=== PATIENT | male | born 1940 | race Caucasian/White ===

== ENCOUNTER 2017-06-17 14:09 | Inpatient (IN) | payer MEDICARE ==
[~2017-06-17] VITALS: Ht 170.2 cm; Wt 90.0 kg
--- NOTE | ~2017-06-17 | EC ---
PATIENT:MADELYN PRAJAPATI DATE OF SERVICE: 06/17/17 SEX: M MEDICAL RECORD: [id number] DATE OF : 42 LOCATION:D. D.212 AGE OF PATIENT: 77 ADMISSION DATE: 06/17/17 REFERRING PHYSICIAN: INTERPRETING PHYSICIAN: MELLY WHIPPLE MD ECHOCARDIOGRAM REPORT ECHO CHARGES 4 ECHO COMPLETE CLINICAL DIAGNOSIS: HYPOTENSION ECHOCARDIOGRAPHIC MEASUREMENTS (adult normal given) AC root (d.<3.7cm) 3.1 cm LV Septum d (<1.2 cm> 1.1 cm Valve Excursion 1.6 cm LV Septum (systole) 1.5 cm Left Atria (s.<4.0cm> 3.5 cm LVPW d(<1.2cm) 1.6 cm RV (d.<2.3cm) 4.0 cm LVPW (sytole) 1.7 cm LV diastole(<5.6CM) 3.9 cm MV E-F(>70mm/sec) cm LV systole 2.3 cm LVOT Diameter 2.0 cm MV exc.(>10mm) 1.5 cm Est.ejection fraction (50-75%) % Pericardial Effusion N DOPPLER: LVIT cm/sec A 84.0 cm/sec E 97.0 cm/sec LA cm/sec RVSP mmHg LVOT 145 cm/sec AOP1/2T 44 m/s Asc. Ao 156 cm/sec RVOT 178 cm/sec RA cm/sec PA 209 cm/sec AV Gradient Peak 9.73 mmHg AV Mean 5.05 mmHg AV Area 2.5 cm MV Gradient Peak 4.52 mmHg MV Mean 2.35 mmHg MV Area cm COMMENTS: Communicable Disease Specialist: Claire HILLIARD Potato Seed Cutter: 2 Dr. Chowdary TAPE# PACS DATE OF SERVICE: 06/18/2017 FINDINGS: 1. Left ventricle chamber size is within normal limits. Left ventricular systolic function is normal. Overall ejection fraction estimated at 65%. 2. Left atrium, right atrium, and right ventricular chamber sizes are within normal limits. 3. Valvular structures have normal structure and motion. 4. Doppler interrogation reveals mild mitral regurgitation, mild tricuspid regurgitation, no other valvular insufficiency or stenosis. Pulmonary systolic ECHOCARDIOGRAM REPORT [id number] MADELYN PRAJAPATI pressure is estimated at 44 mmHg. 5. No evidence of pericardial effusion or left ventricular thrombus. TRANSINT:[id number] Voice Confirmation ID: [id number] DOCUMENT ID: [id number] MELLY WHIPPLE MD CC: [id number] DICTATION DATE: 06/18/17 1245 INFORMATICS DEVELOPER: 06/18/17 1425 ADM IN [place] [id number] [place] [address]
--- NOTE | ~2017-06-17 | DS ---
PATIENT:MADELYN PRAJAPATI :42 MEDICAL RECORD: [id number] DISCHARGE SUMMARY ADMISSION DATE: 06/17/17 DISCHARGE DATE: 06/22/17 DATE OF ADMISSION: 06/17/2017 DATE OF DISCHARGE: 06/22/2017 ADMITTING DIAGNOSES: Near syncope, absolute anemia, history of head and neck cancer, hypertension, chronic pain, pneumonia, renal insufficiency, and type 2 diabetes mellitus. HOSPITAL COURSE: This is a gentleman admitted with diagnoses as outlined above. Details are well-outlined in the history of present illness, H&P. All events, lab procedures, diagnostic testing are well documented in the records. The patient was admitted, appropriate home medicines continued. CONSULTANTS: Dr. Wang, hematology/oncology. Her recommendations were followed. Counts and volume closely followed. He had serial chest x-rays while here. Started on Zofran and Rocephin for the treatment of pneumonia. He did drop hematology counts. Hemoglobin dropped to 7.6. He did get transfused. Platelets dropped to 79. His counts have now improved. He had no further syncopal episodes. White count 10, hemoglobin 9.4, platelets are 157. Other workup sent out per Dr. Wang pending. PHYSICAL EXAMINATION: VITAL SIGNS: He is afebrile, pulse 95, respirations 17, blood pressure 124/66, O2 sat 96% room air. GENERAL: He is ambulating without any problems. LABORATORY DATA AND IMAGING STUDIES: Glucose 129, proBNP found to be 4190. Echocardiogram reviewed, EF is 65%, mild mitral regurgitation, mild tricuspid regurgitation. No other valvular insufficiency, RVSP is 44. No thrombus, no effusion. X-rays are closely followed. Today x-ray shows partial interval improvement in airspace disease in both lung bases, small left pleural effusion and interval development of trace right pleural effusion. He is stable for dismissal home to follow up with Dr. Ma in [place]. We will put him on 5 more days of Omnicef, started him on a low dose Lasix 20 daily for the elevated proBNP. Please refer to med rec. A 37 minutes spent on this discharge. His stool guaiac was negative. He had no further syncope, near syncope while in the hospital. TRANSINT:[id number] Voice Confirmation ID: [id number] DOCUMENT ID: [id number] Dictated By: MALISSA PARRA RN I have interviewed/examined the above patient and agree with these documented findings. DISCHARGE SUMMARY REPORT [id number] MADELYN PRAJAPATI MATTHEW DO CC: THERESA WANG MD and ROSS MA MD [id number] DICTATION DATE: 06/22/17 1439 4TH GRADE MATH TEACHER: 06/22/17 7043 DIS IN 06/22/17 [facility] [address] [place] [address]
[2017-06-17 15:16] LABS: BASOPHILS 0 % (0-2); EOSINOPHILS 0 % (0-7); HEMATOCRIT 32.6 % (42.0-54.0); HEMOGLOBIN 10.4 g/dL (13.5-17.5); IMMATURE GRANULOCYTES 0.2 % (0-5); LYMPHOCYTES 8.4 % (15-50); MCH 30.3 pg (26.0-34.0); MCHC 31.9 g/dL (31.0-37.0); MEAN PLATELET VOLUME 10.8 fL (7.4-10.4); MONOCYTES 6.6 % (2-11); NEUTROPHILS 84.8 % (40-80); PLATELET COUNT 213 10x3/uL (130-400); RBC 3.43 10x6/uL (4.20-6.10); RDW 13.3 % (11.5-14.5); WBC 12.7 10x3/uL (4.8-10.8)
[2017-06-17 15:35] LABS: ANION GAP 16.8 mmol/L (8-16); CARBON DIOXIDE 26.2 mmol/L (21.0-32.0); CREATININE - SERUM 1.4 mg/dL (0.6-1.3)
[2017-06-17 15:52] LABS: CALCIUM 9.4 mg/dL (8.5-10.1)
[2017-06-17 16:17] LABS: CKMB 0.8 U/L (0.0-3.6); CREATINE KINASE 71 UL (21-232)
[2017-06-17 16:22] LABS: TROPONIN-I < 0.017 ng/mL (0.000-0.060)
[2017-06-17 18:26] LABS: APPEARANCE CLEAR (CLEAR); BILIRUBIN NEGATIVE (NEGATIVE); COLOR YELLOW (YELLOW); GLUCOSE NEGATIVE (NEGATIVE); KETONE NEGATIVE (NEGATIVE); LEUKOCYTE ESTERASE NEGATIVE (NEGATIVE); NITRITE NEGATIVE (NEGATIVE); PROTEIN NEGATIVE (NEGATIVE); SPECIFIC GRAVITY 1.015 (1.005-1.020); UROBILINOGEN NORMAL (NORMAL)
[2017-06-17 19:00] VITALS: BP 127/61
--- NOTE | 2017-06-17 21:04 | NUR ---
REPORT FROM ELLA FERNANDEZ.
[2017-06-18] VITALS: BP 104/48
[2017-06-18 00:48] VITALS: BMI 29.8
[2017-06-18] MEDS ORDERED: PERCOCET 10/3251 TA1 PO (01:11)
[2017-06-18] MEDS ORDERED: XANAX1 MG PO (01:11)
[2017-06-18] MEDS ORDERED: COSOPT EYE DROPS5 ML EACH EYE (01:12)
[2017-06-18] MEDS ORDERED: ZESTRIL20 MG PO (01:12)
[2017-06-18] MEDS ORDERED: GLUCOPHAGE500 MG PO (01:14)
--- NOTE | 2017-06-18 02:30 | NUR ---
LYING IN BED, CALL LIGHT IN REACH. WILL CONTINUE WITH PLAN OF CARE
[2017-06-18 04:00] VITALS: BP 168/72
[2017-06-18 06:08] LABS: BASOPHILS 0 % (0-2); EOSINOPHILS 0 % (0-7); LYMPHOCYTES 14.7 % (15-50); MCH 29.8 pg (26.0-34.0); MCHC 31.5 g/dL (31.0-37.0); MCV 94.5 fL (80.0-100.0); MEAN PLATELET VOLUME 10.2 fL (7.4-10.4); MONOCYTES 10.8 % (2-11); NEUTROPHILS 74.5 % (40-80); RDW 13.7 % (11.5-14.5)
[2017-06-18 06:09] LABS: WBC 8.5 10x3/uL (4.8-10.8)
[2017-06-18 06:10] LABS: HEMATOCRIT 24.1 % (42.0-54.0); HEMOGLOBIN 7.6 g/dL (13.5-17.5); PLATELET COUNT 159 10x3/uL (130-400); RBC 2.55 10x6/uL (4.20-6.10)
--- NOTE | 2017-06-18 06:12 | NUR ---
UNABLE TO VOID AT THIS TIME, IS UNSURE WHETHER HE NEEDS TO GO OR NOT. BLADDER SCAN SHOWS 293. WILL CONTINUE TO MONITOR.
[2017-06-18 06:14] LABS: CALC OSMOLALITY 282 mosm/kg (275-300); CALCIUM 8.2 mg/dL (8.5-10.1); CARBON DIOXIDE 26.6 mmol/L (21.0-32.0); CHLORIDE - SERUM 106 mmol/L (98-107); CKMB 1.8 U/L (0.0-3.6); CREATINE KINASE 182 UL (21-232); GLUCOSE 135 mg/dL (74-106); MAGNESIUM - SERUM 1.7 mg/dL (1.8-2.4); POTASSIUM - SERUM 4.4 mmol/L (3.5-5.1); SODIUM 139 mmol/L (136-145); TROPONIN-I < 0.017 ng/mL (0.000-0.060); UREA NITROGEN 20 mg/dL (7-18); eGFR NON AFRICAN AMERICAN 77 mL/min (90-120)
--- NOTE | 2017-06-18 07:15 | NUR ---
RECEIVED REPORT. ASSUMED CARE OF PATIENT. CALL LIGHT WITHIN REACH. DENIES NEEDS. IV FLUIDS INFUSING ORDERED TO LEFT AC. NO DISTRESS.
[2017-06-18 08:25] VITALS: BP 127/58
--- NOTE | 2017-06-18 09:00 | HP ---
PATIENT: MADELYN PRAJAPATI MEDICAL RECORD: [id number] ACCOUNT: [id number] LOCATION:[address] : 41 ADMISSION DATE: 06/17/17 HISTORY AND PHYSICAL EXAMINATION HISTORY: Mr. Prajapati is a 77-year-old male that presents to the Emergency Room with a near syncopal episode. He felt fine yesterday. This morning, was up, doing his normal routine, and began feeling very dizzy and fatigued. He felt like he was going to pass out, broke out in a sweat, was clammy and nauseated, never threw up. He came to the Emergency Room, where he was found to be hypotensive ____. He was given fluid resuscitation. His blood pressure is still running low. On exam, he has a loud holosystolic murmur. He has also got pneumonia, it looks like in his left chest. He does have mild elevation of his white count. He is going to be admitted and further evaluated. PAST MEDICAL HISTORY: Significant for known hypertension, history of neck cancer with resection and radiation therapy in 2010. He has diabetes. He is a previous smoker. He has history of anxiety. PAST SURGICAL HISTORY: Previous surgeries again include left neck resection. ALLERGIES: None known. HOME MEDICATIONS: Include oxycodone 10/325 t.i.d. p.r.n., alprazolam 1 mg p.r.n., metformin 500 b.i.d., lisinopril 20 daily, and Centrum Vitamin. FAMILY HISTORY: Noncontributory. SOCIAL HISTORY: The patient is an ex-smoker and ex-drinker. REVIEW OF SYSTEMS: He denies any fever. He has had a little bit of cough. No chest pain. He has some chronic shortness of breath. No recent changes in bladder or bowel habits. PHYSICAL EXAMINATION: HEENT: Head is normocephalic. Sclerae nonicteric. HEART: Regular with loud holosystolic murmur. LUNGS: Clear. ABDOMEN: Soft. EXTREMITIES: Lower extremities reveal no pitting. IMPRESSION: 1. Near syncope. 2. Pneumonia. 3. Hypertension. 4. Renal insufficiency. 5. Type 2 diabetes. 6. Chronic pain. 7. Heart murmur. PLAN: Blood cultures and start IV antibiotics. Hold lisinopril. Hold metformin due to renal insufficiency. Sliding scale. Check an echo. Repeat enzymes in a.m. See orders for rest of plan. TRANSINT:[id number] Voice Confirmation ID: [id number] DOCUMENT ID: [id number] HISTORY AND PHYSICAL [id number] MADELYN PRAJAPATI MATTHEW DO at 0900 CC: [id number] DICTATION DATE: 06/17/172000 PROPERTY ACCOUNTANT: 06/17/172026 ADM IN [place] [id number] [place] [id number]
[2017-06-18 09:43] VITALS: Ht 170.2 cm; Wt 90.0 kg
--- NOTE | 2017-06-18 11:32 | NUR ---
FSBS 140. NO INSULIN PER SLIDING SCALE.
[2017-06-18 12:12] VITALS: BP 145/65
--- NOTE | 2017-06-18 12:18 | NUR ---
RECEIVING 1ST UNIT OF PRBC'S. FEMALE AT BEDSIDE WITH PATIENT. CALL LIGHT WITHIN REACH. NO DISTRESS NOTED.
--- NOTE | 2017-06-18 12:41 | NUR ---
TOLERATING BLOOD TRANSFUSION WELL. DENIES NEEDS. NO S/S OF TRANSFUSION REACTION. AT BEDSIDE.
--- NOTE | 2017-06-18 15:59 | NUR ---
2ND UNIT PRBC'S INFUSING AT THIS TIME. NO DISTRESS. TOLERATING INFUSION WELL. AT BEDSIDE. CALL LIGHT WITHIN REACH.
[2017-06-18 16:24] VITALS: BP 124/61
[2017-06-18 19:00] VITALS: BP 139/63
--- NOTE | 2017-06-18 19:30 | NUR ---
ALERT/AWAKE DENIES PAIN OR ANY NEEDS. FAMILY PRESENT IN ROOM. IV IN L AC WITH NS INFUSING AT 75ML/HR. TELEMETRY SHOWS 78 SR ON MONITOR. ORIENTED TO CL FOR ANY NEEDS.
--- NOTE | 2017-06-18 21:25 | NUR ---
CHECKED BS AT 125, NO INSULIN REQUIRED PER SLIDING SCALE. DENIES ANY NEEDS. PRESENT IN ROOM.
[2017-06-19] VITALS (7 sets, daily range): BP systolic 118–141; BP diastolic 54–70
--- NOTE | 2017-06-19 00:30 | NUR ---
ADMIN PERCOCET PO PER REQUEST FOR C/O "MOUTH PAIN". STATED PAIN FROM CHEMO TREATMENTS. NO OTHER NEEDS VOICED.
--- NOTE | 2017-06-19 05:45 | NUR ---
CHECKED BS AT120, NO INSULIN REQUIRED PER S/S. DENIES ANY NEEDS.
[2017-06-19 05:49] LABS: BASOPHILS 0 % (0-2); EOSINOPHILS 0.2 % (0-7); HEMATOCRIT 27.8 % (42.0-54.0); IMMATURE GRANULOCYTES 0.4 % (0-5); LYMPHOCYTES 10.8 % (15-50); MCH 30.3 pg (26.0-34.0); MCHC 33.1 g/dL (31.0-37.0); MEAN PLATELET VOLUME 10.1 fL (7.4-10.4); MONOCYTES 11.8 % (2-11); NEUTROPHILS 76.8 % (40-80); RBC 3.04 10x6/uL (4.20-6.10); RDW 14.4 % (11.5-14.5)
[2017-06-19 06:12] LABS: CALCIUM 8.2 mg/dL (8.5-10.1); CHLORIDE - SERUM 105 mmol/L (98-107); GLUCOSE 120 mg/dL (74-106); SODIUM 139 mmol/L (136-145)
[2017-06-19 06:14] LABS: CALC OSMOLALITY 277 mosm/kg (275-300); CREATININE - SERUM 0.7 mg/dL (0.6-1.3); POTASSIUM - SERUM 3.6 mmol/L (3.5-5.1); UREA NITROGEN 11 mg/dL (7-18); eGFR NON AFRICAN AMERICAN > 90 mL/min (90-120)
[2017-06-19 06:21] LABS: HEMOGLOBIN 9.2 g/dL (13.5-17.5); MCV 91.4 fL (80.0-100.0); PLATELET COUNT 79 10x3/uL (130-400); WBC 5.6 10x3/uL (4.8-10.8)
[2017-06-19 06:52] LABS: PLATELET ESTIMATE DECREASED
--- NOTE | 2017-06-19 07:40 | NUR ---
ASSESSMENT DONE. DENIES NEEDS.
--- NOTE | 2017-06-19 10:20 | NUR ---
UP TO BR. IV PATENT. WILL MONITOR NEEDS.
[2017-06-19 13:47] LABS: % SATURATION 19 % (15-55); IRON 46 ug/dl (35-150); TOTAL IRON BIND CAPACITY 232 ug/dl (260-445); UNSAT IRON BIND CAPACITY 186 ug/dl (150-375)
--- NOTE | 2017-06-19 18:06 | NUR ---
WITHOUT CHANGES OR DISTRESS NOTED AT THIS TIME. DENIES NEEDS.
--- NOTE | 2017-06-19 19:50 | NUR ---
ALERT/AWAKE ORIENTED X 4. IV IN L FA WITH NS INFUSING AT 75ML/HR. TELEMETRY SHOWS 96 SR. DENIES ANY NEEDS. HIS IS PRESENT IN ROOM. NO QUESTIONS OR CONCERNS VOICED.
--- NOTE | 2017-06-19 22:50 | NUR ---
RETURNING TO BED FROM BATHROOM. DENIES ANY NEEDS.
[2017-06-20 02:33] VITALS: BP 120/60
--- NOTE | 2017-06-20 05:51 | NUR ---
PATIENT'S STATED HE HAD GOTTEN THE TOILET AND BATHROOM FLOOR DIRTY AND IT NEEDS CLEANED UP. INFORMED EVS.
[2017-06-20 07:07] VITALS: BP 136/51
--- NOTE | 2017-06-20 07:20 | NUR ---
PT UP TO BATHROOM AT THIS TIME, PT DENIES NEEDS. INSTRUCTED TO PULL CORD WHEN FINISHED. WILL CONT TO MONITOR
[2017-06-20 08:00] VITALS: BP 115/76
[2017-06-20 12:00] VITALS: BP 122/54
[2017-06-20 16:00] VITALS: BP 135/63
[2017-06-20 16:13] LABS: BASOPHILS 0 % (0-2); EOSINOPHILS 1.1 % (0-7); HEMATOCRIT 26.9 % (42.0-54.0); HEMOGLOBIN 8.9 g/dL (13.5-17.5); IMMATURE GRANULOCYTES 0.4 % (0-5); LYMPHOCYTES 10.5 % (15-50); MCH 31.2 pg (26.0-34.0); MCHC 33.1 g/dL (31.0-37.0); MEAN PLATELET VOLUME 10.2 fL (7.4-10.4); MONOCYTES 11.6 % (2-11); NEUTROPHILS 76.4 % (40-80); PLATELET COUNT 90 10x3/uL (130-400); RBC 2.85 10x6/uL (4.20-6.10); RDW 14.4 % (11.5-14.5); WBC 5.4 10x3/uL (4.8-10.8)
[2017-06-20 16:14] LABS: MCV 94.4 fL (80.0-100.0)
[2017-06-20 16:22] LABS: CALC OSMOLALITY 284 mosm/kg (275-300); CALCIUM 7.9 mg/dL (8.5-10.1); CARBON DIOXIDE 31.7 mmol/L (21.0-32.0); CHLORIDE - SERUM 107 mmol/L (98-107); CREATININE - SERUM 0.7 mg/dL (0.6-1.3); GLUCOSE 118 mg/dL (74-106); POTASSIUM - SERUM 3.4 mmol/L (3.5-5.1); SODIUM 143 mmol/L (136-145); UREA NITROGEN 10 mg/dL (7-18); eGFR NON AFRICAN AMERICAN > 90 mL/min (90-120)
--- NOTE | 2017-06-20 16:23 | NUR ---
PT KEEPS ASKING IF HE CAN GO HOME. SAYS NURSE PRACTIONER WITH DR MARTI TOLD HIM HE COULD GO AND HE WANTS TO GO SO HIM AND HIS CAN GO PICK THEIR DOGS UP IN [place]. HAVE TRIED EXPLAINING TO PT THAT IT WOULD STILL BE AWHILE, WE STILL DO NOT HAVE ORDERS YET AND DR MARTI HAS NOT MADE IT UP TO DO HIS ROUNDS. WILL UPDATE PT ACCORDINGLY
--- NOTE | 2017-06-20 18:12 | NUR ---
PT IS NOT BEING DC HOME. DR WANG FOLLOWING PT
--- NOTE | 2017-06-20 19:51 | NUR ---
ALERT/ORIENTED X 4. DENIES ANY NEEDS. IV IN L FA WITH NS INFUSING AT 150ML/HR. TELEMETRY SHOWS 86 SR. HIS IS PRESENT IN ROOM. NO QUESTIONS OR CONCERNS VOICED.
[2017-06-20 20:00] VITALS: BP 140/66
--- NOTE | 2017-06-20 21:20 | NUR ---
CHECKED BS AT 117, NO INSULIN REQUIRED PER SLIDING SCALE. AWAKE/ALERT DENIES ANY NEEDS OR DISCOMFORT. REORIENTED HIM TO TIME OF DAY. HIS IS PRESENT IN ROOM.
[2017-06-21 04:00] VITALS: BP 112/55
--- NOTE | 2017-06-21 05:30 | NUR ---
CHECKED BS AT 102, NO INSULIN REQUIRED PER SLIDING SCALE. DENIES ANY NEEDS.
[2017-06-21 09:17] LABS: FOLATE (FOLIC ACID) - SERUM 17.6 ng/mL (>3.0)
--- NOTE | 2017-06-21 09:26 | NUR ---
ASSESSMENT DONE. DENIES NEEDS.
--- NOTE | 2017-06-21 10:02 | NUR ---
RESP UL ON . IV PATENT. CALL LIGHT IN REACH. WILL CONT. PLAN OF CARE.
[2017-06-21 11:28] LABS: BASOPHILS 0.2 % (0-2); EOSINOPHILS 1.3 % (0-7); HEMATOCRIT 26.5 % (42.0-54.0); HEMOGLOBIN 8.6 g/dL (13.5-17.5); IMMATURE GRANULOCYTES 0.4 % (0-5); LYMPHOCYTES 7.8 % (15-50); MCH 30.7 pg (26.0-34.0); MCHC 32.5 g/dL (31.0-37.0); MCV 94.6 fL (80.0-100.0); MEAN PLATELET VOLUME 10.1 fL (7.4-10.4); MONOCYTES 10.3 % (2-11); PLATELET COUNT 104 10x3/uL (130-400); RDW 14.4 % (11.5-14.5); WBC 5.5 10x3/uL (4.8-10.8)
[2017-06-21 11:31] LABS: CALC OSMOLALITY 287 mosm/kg (275-300); CARBON DIOXIDE 30.3 mmol/L (21.0-32.0); CHLORIDE - SERUM 108 mmol/L (98-107); CREATININE - SERUM 0.7 mg/dL (0.6-1.3); GLUCOSE 131 mg/dL (74-106); POTASSIUM - SERUM 3.4 mmol/L (3.5-5.1); SODIUM 144 mmol/L (136-145); UREA NITROGEN 9 mg/dL (7-18); eGFR NON AFRICAN AMERICAN > 90 mL/min (90-120)
[2017-06-21 11:33] LABS: APTT 32.7 SECONDS (22.8-39.4); INR 1.11 (0.85-1.17); PROTIME 14.2 SECONDS (11.6-15.0)
[2017-06-21 12:00] VITALS: BP 135/67
--- NOTE | 2017-06-21 13:54 | NUR ---
Nutrition Follow Up: Pt stated that his appetite is good. He said that he does not really like Glucerna. Pt is eating 56% meal avg [facility] diet. He is receiving Glucerna TID. Wt gain since admit noted. +BM 06/20/17. Meds and labs reviewed. Rec continue current diet. Will d/c Glucerna. RD following.
[2017-06-21 17:54] VITALS: BP 137/65
[2017-06-21 20:00] VITALS: BP 173/96
[2017-06-21 22:46] LABS: BASOPHILS 0.1 % (0-2); EOSINOPHILS 2.2 % (0-7); HEMATOCRIT 28.8 % (42.0-54.0); HEMOGLOBIN 9.4 g/dL (13.5-17.5); IMMATURE GRANULOCYTES 0.5 % (0-5); LYMPHOCYTES 15.2 % (15-50); MCHC 32.6 g/dL (31.0-37.0); MEAN PLATELET VOLUME 9.9 fL (7.4-10.4); MONOCYTES 10.3 % (2-11); NEUTROPHILS 71.7 % (40-80); PLATELET COUNT 157 10x3/uL (130-400); RBC 3.03 10x6/uL (4.20-6.10); RDW 14.6 % (11.5-14.5); WBC 10.4 10x3/uL (4.8-10.8)
[2017-06-21 22:57] VITALS: BP 161/69
[2017-06-21 23:00] LABS: ALBUMIN 2.9 g/dL (3.4-5.0); ALKALINE PHOSPHATASE 77 U/L (46-116); ALT (SGPT) 21 U/L (10-68); BILIRUBIN - TOTAL 1.12 mg/dL (0.2-1.3); CALC OSMOLALITY 285 mosm/kg (275-300); CALCIUM 7.8 mg/dL (8.5-10.1); CARBON DIOXIDE 27.3 mmol/L (21.0-32.0); CHLORIDE - SERUM 107 mmol/L (98-107); CREATININE - SERUM 0.7 mg/dL (0.6-1.3); GLUCOSE 152 mg/dL (74-106); POTASSIUM - SERUM 3.6 mmol/L (3.5-5.1); PROTEIN - SERUM 6.6 g/dL (6.4-8.2); SODIUM 142 mmol/L (136-145); eGFR NON AFRICAN AMERICAN > 90 mL/min (90-120)
[2017-06-21 23:04] LABS: UREA NITROGEN 12 mg/dL (7-18)
--- NOTE | 2017-06-21 23:47 | NUR ---
INITIAL ROUNDS COMPLETEDA T 1920 HRS. PT DENIED ANY DISCOMFORT. OUT AT DESK STATING PT IS SHAKING. FSBS DONE WITH RATE OF 111. ASSESSMENT COMPLETED AT [address] PER CM HR 114. O2 2LNC. LUNGS DIMINISHED IN BASES BILAT. PT VERY INAJA. IV TO LFA WITH NS AT 150CC/HR. PECOCET GIVEN AT HS FOR C/O BACK PAIN. PT ALSO HAS LOW GRADE TEMP. OUT TO NURSE'S STATION REQUESTING HELP TO PULL PT UP IN BED AT 2020 HRS. AUDIBLE WHEEZES HEARD. PT TACHYCARDIC WITH ST HR 131. O2 SAT 81% ON 2LNC. O2 INCREASE TO 3L AND RAPID RESPONSE CALLED AT 2225 HRS. O2 UP TO 5LNC. ABG'S AND LAB DRAWN. UPDRAFT GIVEN. LASIX 20MG SIVP GIVEN. VS IMPROVED BY 2300 AND PT STATED FEELS BETTER. CONTINUOUS PULSE OX IN ROOM WITH O2 SAT RUNNING 94-95% ON 5LNC. AUDIBLE WHEEZING GONE EXCEPT WITH EXERTION. PT VOIDED 375CC OF YELLOW URINE. PT ONLY ABLE TO URINATE STANDING UP. AUDIBLE WHHEZING NOTED AFTER URINATION BUT QUICKLY DISSAPATES WITH A FEW MINUTES. CXR DONE. PT CURRENTLY RESTING WITH EYES CLOSED. RESP EVEN AND REGULAR. O2 SA 95% AND HR 110. AT BEDSIDE. SR UP X2, CALL LIGHT WITHIN REACH.
[2017-06-22] VITALS: BP 134/62
--- NOTE | 2017-06-22 01:02 | NUR ---
PT STATED HE HAS BEEN TAKING HIS OWN PERCOCET AND XANAX. INFORMED PT THAT STAFF HAS BEEN GIVING HIM PERCOCET. LAST DOSE AT 2134 HRS. INFORMED XANAX NOT REORDERED. PT JAHHN BECAME EXTREMELY HOSTILE STATING HE WILL SIGN OUT AMA IF NO XANAX. INFORMED PT TAHT WILL SPEAK TO MD IN AM AND TO TAKE MEDS HOME. PT THEN BECAME VERY BELLERGERENT YELLING THAT HE WILL NOT BE HERE WHEN THIS STAFF MEMBER COMES BACK. REFUSES TO GIVE MEDS TO STAFF. HAS MEDS AT THIS TIME.
--- NOTE | 2017-06-22 01:23 | NUR ---
Soraida GUZMAN TIP TESTER INFORMED OF SITUATION.
--- NOTE | 2017-06-22 02:12 | NUR ---
PT RESTING WITH EYES CLOSED. RESP EVEN AND REGULAR. SR UP X2, CALL LIGHT WITHIN REACH.
[2017-06-22 04:00] VITALS: BP 145/72
--- NOTE | 2017-06-22 04:48 | NUR ---
PT RESTING WITH EYES CLOSED. RESP EVEN AND REGULAR. O2 2LNC. WILL CONTINUE TO MONITOR. AT BEDSIDE.
--- NOTE | 2017-06-22 06:22 | NUR ---
VSS THIS AM. SR PER CM. O2 SAT 98% ON 2LNC. AM FSBS 114. NO COVERGE NEEDED. WIF AT BEDSIDE. WILL CONTINUE TO MONITOR.
--- NOTE | 2017-06-22 07:35 | NUR ---
PT SITTING UP IN BED RECEIVING BREATHING TX AT BEDSIDE DENIES NEEDS WILL CONT TO MONITOR
--- NOTE | 2017-06-22 08:00 | NUR ---
PT TOOK PT HOME MEDICATIONS HOME.
[2017-06-22 08:10] VITALS: BP 137/56
[2017-06-22 12:32] VITALS: BP 124/66
[2017-06-22] MEDS ORDERED: OMNICEF300 MG PO (14:25)
[2017-06-22] MEDS ORDERED: LASIX20 MG PO (14:33)
--- NOTE | 2017-06-22 15:22 | NUR ---
WENT OVER DC PAPERWORK WITH PT PT VERBALIZES UNDERSTANDING. DC PIV WITH CATH TIP INTACT. DC TELE AND RETURNED TO LANDSCAPE ENGINEER. PT HAS HIS SCRIPTS PT GETTING DRESSED AND WILL CALL FOR WHEELCHAIR TO DC HOME
--- NOTE | 2017-06-22 15:42 | NUR ---
GUERDA PT, WHEELED OUT TO FRONT ENTRANCE PICKED HIM UP
== END 2017-06-22 15:42 | disposition home or self-care (01) | DRG 813 ==
LOC: D.ER 14:09 → D.M2 19:44
PROVIDERS: Family Medicine; Internal Medicine Hematology & Oncology; Nurse Practitioner Acute Care; ADMIT Family Medicine
DX: D69.6 Thrombocytopenia, unspecified (principal); J18.9 Pneumonia, unspecified organism; N17.9 Acute kidney failure, unspecified; J90 Pleural effusion, not elsewhere classified; D50.9 Iron deficiency anemia, unspecified; I10 Essential (primary) hypertension; G89.29 Other chronic pain; F41.9 Anxiety disorder, unspecified; E11.9 Type 2 diabetes mellitus without complications; I95.1 Orthostatic hypotension; Z85.46 Personal history of malignant neoplasm of prostate; Z87.891 Personal history of nicotine dependence; Z85.810 Personal history of malignant neoplasm of tongue